=== PATIENT | female | born 1965 | race Two or more races ===

== ENCOUNTER 2023-10-26 07:32 | Day surgery (SDC) | payer BC ==
[2023-10-20 14:40] VITALS: BMI 26.6
[2023-10-26 08:05] VITALS: TEMP 98
[2023-10-26] MEDS ORDERED: ONDANSETRON 4 MG/2 ML VIAL ONE (08:47)
[2023-10-26 09:35] VITALS: BP 104/68; PULSE 77; RESP 19
== END 2023-10-26 09:25 | disposition home or self-care (01) ==
LOC: FASU-ENDO 07:32
PROVIDERS: ATTEND Internal Medicine Gastroenterology
PROC: 0DJD8ZZ Inspection of Lower Intestinal Tract, Via Natural or Artificial Opening Endoscopic (ICD-10-PCS; principal; 2023-10-26 08:45)
DX: Z12.11 Encounter for screening for malignant neoplasm of colon (principal); K57.30 Diverticulosis of large intestine without perforation or abscess without bleeding